=== PATIENT | male | born 1970 | race Caucasian/White ===

== ENCOUNTER 2016-12-01 06:08 | Emergency (ER) | payer OTHER ==
[2016-12-01] MEDS ORDERED: DIPH,PERTUSS,TET(ADACEL) VAC/PF 0.5 ML (Tdap) IM ONE (06:20)
[2016-12-01] MEDS ORDERED: BACITRACIN 0.9 GM PACKET OINT TOPICAL ONE (06:20)
--- NOTE | 2016-12-01 06:28 | PDOC ---
Hand / Wrist Injury HPI - General Chief Complaint: Laceration / Wound Stated Complaint: CUT LEFT THUMB WITH RAZOR 20 MIN. AGO Date Seen by Provider: 12/01/16 Time Seen by Provider: 06:23 - History of Present Illness Initial Comments: Patient had a fingertip avulsion injury with a very sharp knife about 20 minutes prior to coming in. He is having substantial bleeding from this wound and was fearful that it would not be able to stop bleeding so decided to come and have it evaluated. This injury is on his thumb. Have you received a tetanus shot in the past 10 years?: Yes - Patient Home Medications Home Medications: Home Medications Levothyroxine Sodium 50 mcg PO DAILY #90 tab 11/22/15 - Patient Allergies Allergies/Adverse Reactions: Allergies Allergy/AdvReac Type Severity Reaction Status Date / Time No Known Allergies Allergy Verified 12/01/16 06:17 Past Medical History - heen HEENT History: Denies History Cardiovascular History: Hyperlipidemia Respiratory History: Denies History Gastrointestinal History: Denies History Genitourinary History: Denies History Endocrine History: Hyperthyroidism Musculoskeletal History: Denies History Prosthesis or Implant: No Neurological History: Denies History Blood Disorders: Denies History Psychiatric History: Denies History History of Sexually Transmitted Diseases: No Cancer History: Denies History History of MDRO: No History of Other Communicable Diseases: No Alcohol Use: None Substance Use Type: None Previous Surgical History: No Anesthesia Reactions: No Malignant Hyperthermia: No Significant Family History: Heart disease Additional Family History: Father at 58 from CAD ROS - Limitations ROS Limitations: No Limitations Constitution: REPORTS: Denies Symptoms Cardiovascular: REPORTS: Denies Cardiac Symptoms Respiratory: REPORTS: Denies Resp Symptoms Neurological: REPORTS: Denies Neuro Symptoms Hand / Wrist Injury Exam - General Appearance General Appearance: POSITIVE: Alert, Cooperative, No Acute Distress - Extremities Upper Extremity: POSITIVE: Other (he has a small avulsion laceration on the tip of his thumb that has currently stopped bleeding. A small amount of pulp is visible i.e. less than half a square centimeter) Hand / Wrist Injury Progress - Patient's Progress MDM / ED Course: His finger actually is looking pretty good right now. He has had resolution of his bleeding. Fingers placed in a tube gauze with some bacitracin and he should do fine with this. He has not had a tetanus shot so he is administered tetanus. Patient Care Time - Estimated PCT Patient Care Time (In Minutes): 15 Discharge Clinical Impression: Laceration - injury Discharge Disposition: Discharged to Home Condition: Good Patient Instructions Given at Discharge: Laceration (ED) Additional Instructions: Leave current dressing in place for approximately 24 hours. Change dressing daily for the next few days until this heals. Return with any signs or symptoms of substantial infection Follow Up With: NONE,NONE [Primary Care Provider] -
[2016-12-01 06:58] VITALS: RESP 14; TEMP 96.7
== END 2016-12-01 06:50 | disposition home or self-care (01) ==
LOC: ER 06:08
DX: S61.012A Laceration without foreign body of left thumb without damage to nail, initial encounter (principal); W45.8XXA Other foreign body or object entering through skin, initial encounter
CPT/HCPCS: 90471; 99282